=== PATIENT | female | born 1940 | race Two or more races ===

== ENCOUNTER → 2018-06-10 | Day surgery (SDC) | payer OTHER | END | disposition home or self-care (01) | LOC: AMB-ENDOS 13:11 | DX: K29.50 Unspecified chronic gastritis without bleeding (principal) ==

== ENCOUNTER 2018-07-26 06:00 | Day surgery (SDC) | payer OTHER | END 2018-07-26 09:55 | disposition home or self-care (01) | LOC: AMB-ENDOS 06:00 | DX: K64.1 Second degree hemorrhoids (principal) ==

== ENCOUNTER → 2023-08-15 | Outpatient (CLI) | payer OTHER | END | disposition home or self-care (01) | LOC: RX STUDY 08:21 | PROVIDERS: ATTEND Otolaryngology | DX: R13.13 Dysphagia, pharyngeal phase (principal) ==